=== PATIENT | male | born 1950 | race Caucasian/White ===

== ENCOUNTER 2019-11-15 09:03 | Outpatient (REF) | payer MEDICARE, SELFPAY ==
[2019-11-15 12:28] LABS: Estmated Average Glucose 117; Hemoglobin A1C 5.7 % (4.0-6.0)
[2019-11-15 13:27] LABS: Chol HDL Ratio 2.41 mg/dL (1.0-5.00); Cholesterol 217 mg/dL (0-200); Glucose 98 mg/dL (65-115); HDL Cholesterol 90 mg/dL (60-100); LDL Cholesterol Calculated 117 mg/dL (50-129); Triglycerides 49 mg/dL (0-150)
== END 2019-11-15 09:04 | disposition home or self-care (01) ==
LOC: LAB 09:03
PROVIDERS: Family Provider Family Medicine; PCP Family Medicine; Visit Provider Dermatology
DX: Z01.89 Encounter for other specified special examinations (principal)
CPT/HCPCS: 80061; 82947; 83036

== ENCOUNTER 2019-12-25 15:55 | Outpatient (CLI) | payer MEDICARE, SELFPAY ==
--- NOTE | 2019-12-25 | XR_ITS ---
WS: [id number] Left hand, 3 views, 12/25/2019 Clinical Data: HAND PAIN LEFT Comparison: None. Findings: No fractures or dislocations are seen. The soft tissues are unremarkable. There is osteoarthritic narrowing of the second and third MP joints with an osteoarthritic spur at th e head of the left third metacarpal. There is sclerosis at the base of the left first metacarpal with osteoarthritic change. No periarticular demineralization or calcifications are seen. XR/XR hand LT min 3V* [id number] Impression: 1. 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 2. 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
== END 2019-12-25 15:56 | disposition home or self-care (01) ==
LOC: RADOUTREAD 12-27 08:50
PROVIDERS: Family Provider Family Medicine; PCP Family Medicine; Visit Provider Family Medicine
DX: Z01.89 Encounter for other specified special examinations (principal)

== ENCOUNTER → 2020-12-11 12:05 | Outpatient (BNVA) | payer MEDICARE, SELFPAY | PROVIDERS: Family Provider Family Medicine; PCP Family Medicine; Visit Provider Surgery | DX: Z01.812 Encounter for preprocedural laboratory examination (principal); Z20.828 Contact with and (suspected) exposure to other viral communicable diseases | CPT/HCPCS: 87635 ==

== ENCOUNTER 2020-12-16 10:22 | Day surgery (SDC) | payer MEDICARE, SELFPAY ==
[2020-12-15 15:21] VITALS: BMI 21.9
[2020-12-16] VITALS (7 sets, daily range): BP systolic 109–162; BP diastolic 71–101; PULSE 48–78; RESP 14–16; TEMP 36–36.8; O2SAT 96–100
--- NOTE | 2020-12-16 10:59 | W.PM.OPSUD ---
Surgery/Procedure H&P Update DATE OF PROCEDURE: December 16, 2020 DATE H&P PERFORMED: 12/08/20 H&P UPDATE INFORMATION: I have reviewed H&P completed within last 30 days, I have examined patient prior to procedure and No changes to prior documentation PREOP DIAGNOSIS: right inguinal hernia PLANNED PROCEDURE: Operation Date: 12/16/20 13:30 Proposed Procedures p Laparoscopic Inguinal Hernia Repair w/Mesh 45495 K40.90(Right) - Billy Aburto MD
[2020-12-16] MEDS: sodium chloride 0.9% 1,000 ML 30 ML IV (11:13)
--- NOTE | 2020-12-16 11:15 | ANES.PREANE2 ---
Pre-Anesthetic Assessment Pre-Anesthetic Assessment: Height/Weight: Height 1.8 m Weight 71.214 kg Temp Pulse Resp BP Pulse Ox 98.3 F 78 16 162/101 96 12/16/20 11:04 12/16/20 11:04 12/16/20 11:04 12/16/20 11:04 12/16/20 11:04 Preop Diagnosis: right inguinal hernia Proposed Procedure: Operation Date: 12/16/20 13:30 Proposed Procedures p Laparoscopic Inguinal Hernia Repair w/Mesh 31079 K40.90(Right) - Billy Aburto MD Was Beta Alexandrea taken within 24 hours: N/A Last intake: Intake Last Liquid Date 12/16/20 Last Liquid Time 07:30 Last Solid Date 12/15/20 Last Solid Time 19:30 Social: Social History: No alcohol and No tobacco Exam: Pre-Anes Outpt Exam: alert, oriented x 3, clear to auscultation bilaterally and regular rate & rhythm Airway: Submandibular: WNL Cervical ROM: WNL MP: 2 Dentition: Full : Comments: BPH GI: Comments: Hernia Anesthetic Plan: ASA status: 2 Anesthesia: General Risk of > 500 ml blood loss (7ml/kg in children): No Meds/Allergies Current Medications: Current Medications Generic Name Dose Route Start Last Admin Trade Name Freq PRN Reason Stop Dose Admin Sodium Chloride 1,000 mls @ 30 ml s/hr 12/16/20 10:45 12/16/20 11:13 Sodium Chloride 0.9% IV 12/17/20 10:44 30 mls/hr .Q24H GUANAKITO Administration PFSH Anesthesia PFSH: Medical History (Updated 07/10/20 @ 15:02 by Billy Aburto MD) BPH (benign prostatic hyperplasia) Surgical History H/O circumcision H/O colonoscopy H/O local excision of skin lesion H/O Mohs micrographic surgery for skin cancer History of carpal tunnel release of both wrists Family History Other Diabetes Denies family history of CAD (coronary artery disease) Anesthesia complication Bleeding disorder Cancer Social History Smoking and tobacco status: never smoked Alcohol intake: current Alcohol intake frequency: other Lives independently: Yes Marital status: Single Current occupational status: unemployed History of recent travel: Yes Details: wks ago [place] Out of state: Yes Data Anesthesia Cardiac Studies: No Data to Display
[2020-12-16 12:39] LABS: Glucose Point of Care 143 mg/dL (70-110)
--- NOTE | 2020-12-16 13:23 | PM.OP ---
Operative Report Date of procedure: December 16, 2020 Pre-op Diagnosis: Right inguinal hernia Post-op Diagnosis: Reducible right indirect inguinal hernia Procedure Done: Laparoscopic total extraperitoneal repair of right indirect inguinal hernia with 16 x 11 cm Surgimax 3D mesh Pathology: none sent Surgeon: Billy Aburto Anesthesia: MAC Condition: stable Disposition: PACU Procedure: The patient was taken to the operating room. After IV antibiotic was administered, the abdomen was prepped and draped in a sterile manner. Using a 15 blade, a 1.0 cm transverse incision was made infraumbilically on the right side. Subcutaneous tissue was divided using electrocautery and the anterior rectus sheath divided using an 11 blade. The rectus muscle was retracted laterally and the extraperitoneal space identified. A 11 mm port was placed and 12 mm of pneumoperitoneum was created. A 10 mm 30? scope was introduced and the retrorectus space was opened using the camera up to the pubic symphysis and 5 mm ports were placed in the midline, one 2-fingerbreadths above the pubic symphysis and the other midway between these two ports under direct visualization. Blunt dissection was carried out to open up the tissue in the midline and to the pubic symphysis, which was identified. The dissection was then carried laterally where the iliopubic tract was identified. There was no femoral, obturator or direct hernia noted. The inferior epigastric artery was identified and dissection was carried posterior to it and laterally, the space was opened up to the level of the umbilicus superior to the anterior superior iliac spine. I then proceeded to dissect out the spermatic cord and the indirect hernial sac was reduced . 16 x 11cm Surgimax mesh was rolled and introduced through the 10 mm port and then rolled laterally and apposed well against the abdominal wall to cover the myopectineal orifice completely. 10 Cc of 0.5% Marcaine was infiltrated into the preperitoneal space. The extraperitoneal space was desufflated under direct visualization to ensure no slippage of hernial sac under the mesh. All ports were removed, the anterior rectus fascia at the infraumbilical port closed using figure of eight 0 Vicryl sutures, subcutaneous tissue approximated using 3-0 Vicryl sutures and skin at all three port sites were closed using running subcuticular 4-0 Monocryl sutures and Dermabond. 10 mL of 0.5% Marcaine was infiltrated at the port sites. The patient was stable throughout the procedure.
--- NOTE | 2020-12-16 14:57 | ANE.PACU2 ---
Inpatient post-anesthesia follow up: Airway intact: Yes Vital signs: Temperature 98 F Pulse Rate 54 Respiratory Rate 16 Blood Pressure 125/80 Pulse Oximetry 97 Oxygen Delivery Me thod Room Air Oxygen Flow Rate 6 Fraction of Inspir ed Oxygen Hydration adequate: Yes Nausea and vomiting: No Pain level: 2 Mental status: Baseline
== END 2020-12-16 14:00 | disposition home or self-care (01) ==
PROVIDERS: PCP Family Medicine; Visit Provider Surgery
PROC: (CPT 49650; principal; 2020-12-16 11:35)
DX: K40.90 Unilateral inguinal hernia, without obstruction or gangrene, not specified as recurrent (principal); N40.0 Benign prostatic hyperplasia without lower urinary tract symptoms
CPT/HCPCS: 49505; 36416; 82962; C1781; J0690; J1100; J1170; J2405; J2710; J3010; J3490; J7030

== ENCOUNTER → 2021-04-14 07:51 | Outpatient (BNVA) | payer MEDICARE, SELFPAY | PROVIDERS: PCP Family Medicine; Visit Provider Urology | DX: N40.0 Benign prostatic hyperplasia without lower urinary tract symptoms (principal); N40.1 Benign prostatic hyperplasia with lower urinary tract symptoms; N43.40 Spermatocele of epididymis, unspecified | CPT/HCPCS: 81003 ==

== ENCOUNTER → 2023-07-25 10:32 | Outpatient (BNVA) | payer MEDICARE, SELFPAY | PROVIDERS: PCP Family Medicine; Visit Provider Dermatology | DX: D48.5 Neoplasm of uncertain behavior of skin (principal); L57.0 Actinic keratosis; L73.8 Other specified follicular disorders; L57.8 Other skin changes due to chronic exposure to nonionizing radiation; L82.1 Other seborrheic keratosis; L82.0 Inflamed seborrheic keratosis; Z85.828 Personal history of other malignant neoplasm of skin | CPT/HCPCS: 11102; 17000; 17110; 99203 ==

== ENCOUNTER → 2025-07-28 10:15 | Outpatient (BNVA) | payer MEDICARE, SELFPAY | PROVIDERS: PCP Family Medicine; Visit Provider Dermatology | DX: L82.1 Other seborrheic keratosis (principal); L73.8 Other specified follicular disorders; D18.01 Hemangioma of skin and subcutaneous tissue; L57.8 Other skin changes due to chronic exposure to nonionizing radiation; Z85.828 Personal history of other malignant neoplasm of skin; L57.0 Actinic keratosis | CPT/HCPCS: 17000; 99213 ==